=== PATIENT | male | born 1980 | race Caucasian/White ===

== ENCOUNTER 2021-02-20 18:14 | Emergency (ER) | payer OTHER, SELFPAY ==
[2021-02-20] MEDS ORDERED: Dexamethasone 4 mg/ml Vial ONE (18:36)
[2021-02-20] MEDS ORDERED: diphenhydrAMINE 50 MG/ML VIAL ONE (18:36)
[2021-02-20] MEDS ORDERED: predniSONE 20 MG TAB ONE (18:43)
[2021-02-20] MEDS ORDERED: diphenhydrAMINE 25 MG CAP ONE (18:43)
[2021-02-20] MEDS ORDERED: Famotidine 20 MG TAB ONE (18:43)
== END 2021-02-20 18:58 | disposition home or self-care (01) ==
LOC: NAV ERS 18:14
DX: T63.461A Toxic effect of venom of wasps, accidental (unintentional), initial encounter (principal)
CPT/HCPCS: 96372; 99283; J1100; J1200; J7512

== ENCOUNTER 2024-01-15 12:15 | Emergency (ER) | payer OTHER | END 2024-01-15 13:35 | disposition home or self-care (01) | LOC: NAV ERS 12:15 | DX: S93.402A Sprain of unspecified ligament of left ankle, initial encounter (principal); X50.1XXA Overexertion from prolonged static or awkward postures, initial encounter ==